=== PATIENT | male | born 1980 | race Caucasian/White ===

== ENCOUNTER 2021-05-21 10:59 | Outpatient (CLI) | payer BC, SELFPAY ==
--- NOTE | 2021-05-21 11:13 | XR_ITS ---
WS: [id number] Exam: XR foot LT min 3V* [id number] Date/Time of Exam: 05/21/2021 11:13 AM Reason For Exam: LEFT FOOT PAIN No fracture or dislocation noted. No sign of obvious stress fracture. No soft tissue foreign bodies a re seen. A 2.3 x 2.7 cm exophytic cortical bone lesion is partially visualized along the medial malle olus. The lesion is somewhat expansile with altered bony architecture in the medial malleolus. No obv ious periosteal elevation is seen. XR/XR foot LT min 3V* [id number] IMPRESSION: 1. No sign of fracture or dislocation of the left foot. No sign of healing stre ss fracture. 2. Incidental finding of 2.3 x 2.7 cm exophytic cortical bone lesion which is s omewhat expansile extending into the region of the medial malleolus. This may r epresent an atypical osteochondroma. A malignant bone lesion such as a perioste al osteosarcoma is much less likely but not completely ruled out. Orthopedic co nsultation and further imaging with MRI with and without contrast is recommende d. Ultimately, biopsy may be necessary for definitive diagnosis. Any prior radi ographs of the left ankle or foot could also be very helpful to determine the c hronicity of this finding.
== END 2021-05-21 11:00 | disposition home or self-care (01) ==
PROVIDERS: PCP Family Medicine; Visit Provider Family Medicine
DX: M79.672 Pain in left foot (principal)
CPT/HCPCS: 73630

== ENCOUNTER 2022-02-09 05:29 | Emergency (ER) | payer BC, SELFPAY ==
[2022-02-09 05:35] VITALS: BMI 30.2
[2022-02-09 05:38] VITALS: BP 123/92; PULSE 62; RESP 16; TEMP 36.7; O2SAT 96
--- NOTE | 2022-02-09 05:44 | CTR_ITS ---
PROCEDURE INFORMATION: Exam: CT Abdomen And Pelvis Without Contrast Exam date and time: 02/09/2022 6:01 AM Age: 41 years old Clinical indication: Abdominal pain; Prior surgery; Surgery type: Hernia repair; Patient HX: C/O right flank pain. TECHNIQUE: Imaging protocol: Computed tomography of the abdomen and pelvis without contrast. Radiation optimization: All CT scans at this facility use at least one of these dose optimization techniques: automated exposure control; mA and/or kV adjustment per patient size (includes targeted exams where dose is matched to clinical indication); or iterative reconstruction. COMPARISON: CT abdomen pelvis w con* [id number] 08/09/2017 5:07 PM RADIATION DOSE METRICS: Total DLP (mGy-cm): 1272.57 FINDINGS: Lungs: The visualized portions of the lung bases are normal. Liver: The non-contrast enhanced liver appears unremarkable. Gallbladder and bile ducts: No calcified stones. No biliary ductal dilatation. Pancreas: The non-contrast enhanced pancreas appears grossly unremarkable. No ductal dilation. Spleen: Some punctate splenic calcified granulomas are seen. The spleen is otherwise unremarkable on noncontrast CT imaging. Adrenal glands: Unremarkable non-contrast CT appearance of the adrenals. No definte masses. Kidneys and ureters: No contour deforming masses seen on the non-contrast CT. Right kidney mid zone 6 x 5 mm calculus is seen. Right kidney lower pole 1-2 mm calculi are seen (2). Left kidney mid zone posterior 3 x 2 mm calculus is seen. There is mild right hydronephrosis and ureterectasis with a right ureterovesicular junction 2 x 2 x 3 mm calculus (series 4, image 200 and series 6, image 97)-at the level of the hip joint. No left hydronephrosis or ureterectasis. No left ureteral calculi. Stomach and bowel: The noncontrast opacified stomach appears unremarkable. The noncontrast opacified loops of small bowel in the abdomen and pelvis appear unremarkable. The noncontrast opacified loops of colon in the abdomen and pelvis show mild constipation. The lack of orally administered contrast material limits bowel assessment. Appendix: No evidence of appendicitis. Intraperitoneal space: No abdominal ascites. No free air. There are numerous benign phleboliths in the pelvis. Vasculature: No abdominal aortic aneurysm. Lymph nodes: No enlarged lymph nodes. Urinary bladder: No bladder wall thickening or debris Reproductive: Unremarkable as visualized. Bones/joints: No acute osseous abnormality seen. [id number] right and mild left hip degenerative changes are seen. There is 1 mm anterolisthesis of L4 on L5, related to severe degenerative facet disease changes. Soft tissues: Small right and medium-sized left inguinal hernias are seen, containing peritoneal fat. Small umbilical hernia is seen, containing peritoneal fat. CT/CT kidney stone [id number] IMPRESSION: 1. Bilateral intrarenal small calculi. Mild right hydronephrosis and ureterectasis with a right ureterovesicular junction 2 x 2 x 3 mm calculus (series 4, image 200 and series 6, image 97)-at the level of the hip joint.
--- NOTE | 2022-02-09 05:45 | W.ED.MALEGU ---
HPI - Male Genitourinary General: Chief complaint: Urogenital-Male Stated complaint: lower right back pain Time Seen by Provider: 02/09/22 05:43 Source: patient Mode of arrival: ambulatory Limitations: no limitations History of Present Illness: 41 yo male presents w hematuria and flank pain that began 2 days ago. Patient has a history of renal stones in the past he is also unable to pass them on his own he is not had any lithotripsy or stents. He denies any fever sweats or chills. Onset (ago): day(s) (2) Duration: constant Location: right flank Radiation: right inguinal region Severity: severe Quality: sharp Relieving factors: none Exacerbating factors: none Associated symptoms: Reports hematuria; Deny discharge, dysuria, fevers/chills, nausea, rash, swelling, urinary incontinence, urinary retention, mass or vomiting Review of Systems Const: Denies: fever(s), chills, body aches, change in appetite, fatigue or malaise ENMT: Denies: throat pain, ear or mastoid pain, nasal discharge or nasal congestion Card: Denies: chest pain, edema, dyspnea on exertion or orthopnea Resp: Denies: dyspnea, productive cough or non-productive cough GI: Denies: abdominal pain, nausea or vomiting : Reports: flank pain and hematuria; Denies: difficulty urinating, dysuria, urinary frequency, urinary urgency or urinary incontinence Skin/Breast: Denies: rash or pruritus [facility] ED PFSH: Medical History (Updated 02/09/22 @ 06:44 by Nestor Dietrich DO) Nephrolithiasis Surgical History (Updated 02/09/22 @ 05:58 by Nestor Dietrich DO) H/O left wrist surgery H/O umbilical hernia repair S/P left rotator cuff repair Social History (Updated 02/09/22 @ 05:59 by Nestro Dietrich DO) Smoking and tobacco status: never smoked Alcohol intake: current Alcohol intake frequency: few times a month Physical Exam Const: GENERAL APPEARANCE: cooperative and comfortable ORIENTATION/CONSCIOUSNESS: Yes awake, Yes oriented to person, Yes oriented to place and Yes oriented to time HENMT: COMMON NORMALS: normocephalic, atraumatic and hearing grossly normal bilaterally HEAD & SCALP: normocephalic and atraumatic Neck/C-Spine: COMMON NORMALS: no JVD Resp: COMMON NORMALS: normal respiratory effort, No retractions, No use of accessory muscles and clear to auscultation bilaterally AUSCULTATION: clear to auscultation bilaterally Cardio: COMMON NORMALS: no JVD, regular rate, regular rhythm and No murmurs present (Cardio) RATE: regular rate RHYTHM: regular rhythm GI: COMMON NORMALS: Soft to palpation and No hepatosplenomegaly present AUSCULTATION: Yes normoactive bowel sounds PALPATION: Yes Soft to palpation, No Tenderness to palpation present (GI), No Guarding due to palpation present (GI) and Yes No hepatosplenomegaly present : BLADDER/KIDNEY EXAM: Yes CVA tenderness Back/Pelvis: GENERAL BACK: Yes CVA tenderness CVA tenderness: right Extremity: COMMON NORMALS: normal to inspection, capillary refill normal, no clubbing, cyanosis or edema, no calf tenderness and no pedal edema Neuro: SENSORIUM/ORIENTATION: Yes oriented to person, Yes oriented to place and Yes oriented to time Skin: COMMON NORMALS: no rashes or lesions noted GENERAL SKIN EXAM: no rashes or lesions noted Course Vital Signs: Vital signs: Vital Signs Temperature 98.0 F 02/09/22 05:38 Pulse Rate 73 02/09/22 07:53 Respiratory Rate 16 02/09/22 07:53 Blood Pressure 145/109 02/09/22 07:53 Pulse Oximetry 96 02/09/22 07:53 MDM - Male Medical Decision Making 3.6 mm renal stone at the right UVJ. It appears its about to pass. Discharge patient home strain urine follow-up with Iverson return if pain uncontrolled Medical Records I reviewed the patient's medical records. Lab Data I reviewed the patient's lab results. : 02/09/22 05:44 02/09/22 05:44 Radiology Impressions Abdomen/Pelvis CT 02/09/22 05:44 IMPRESSION: 1. Bilateral intrarenal small calculi. Mild right hydronephrosis and ureterectasis with a right ureterovesicular junction 2 x 2 x 3 mm calculus (series 4, image 200 and series 6, image 97)-at the level of the hip joint. Laboratory Results WBC 8.3 10^3/uL (4.0-10.0) 02/09/22 05:44 RBC 5.25 10^6/uL (4.1-5.3) 02/09/22 05:44 Hgb 16.0 g/dL (11.7-16.6) 02/09/22 05:44 Hct 45.6 % (42.0-52.0) 02/09/22 05:44 MCV 86.9 fl (80-94) 02/09/22 05:44 MCH 30.5 pg (28.0-34.0) 02/09/22 05:44 MCHC 35.1 g/dL (30.0-36.0) 02/09/22 05:44 RDW 12.1 % (12.1-15.1) 02/09/22 05:44 Plt Count 252 10^3/cmm (130-400) 02/09/22 05:44 MPV 9.3 fL (7.4-10.4) 02/09/22 05:44 Neut % (Auto) 58.8 % 02/09/22 05:44 Lymph % (Auto) 23.0 % 02/09/22 05:44 Tift % (Auto) 9.6 % 02/09/22 05:44 Eos % (Auto) 7.0 % 02/09/22 05:44 Baso % (Auto) 1.1 % 02/09/22 05:44 Neut # (Auto) 4.91 10^3/uL (1.8-7.7) 02/09/22 05:44 Lymph # (Auto) 1.9 10^3/uL (0.8-4.8) 02/09/22 05:44 Tift # (Auto) 0.8 10^3/uL (0.2-0.9) 02/09/22 05:44 Eos # (Auto) 0.6 10^3/uL (0.0-0.8) 02/09/22 05:44 Baso # (Auto) 0.1 10^3/uL (0.0-0.1) 02/09/22 05:44 Nucleated RBC % (auto) 0 % 02/09/22 05:44 Nucleated RBCs # 0.0 /100WBC 02/09/22 05:44 Sodium 140 mmol/L (136-145) 02/09/22 05:44 Potassium 3.9 mmol/L (3.5-5.1) 02/09/22 05:44 Chloride 104 mmol/L (98-107) 02/09/22 05:44 Carbon Dioxide 26 mmol/L (22-29) 02/09/22 05:44 Anion Gap 13.9 (5-19) 02/09/22 05:44 BUN 16 mg/dL (6-20) 02/09/22 05:44 Creatinine 0.8 mg/dL (0.7-1.2) 02/09/22 05:44 GFR Calculation 107.1 mL/min (90-130) 02/09/22 05:44 Glucose 103 mg/dL (65-115) 02/09/22 05:44 Calculated Osmolality 291 mOsm/kg (285-295) 02/09/22 05:44 Calcium 9.1 mg/dL (8.5-10.5) 02/09/22 05:44 Urine Color Brown (Yellow) 02/09/22 06:54 Urine Appearance Cloudy (CLEAR) 02/09/22 06:54 Urine pH 5 (5-7) 02/09/22 06:54 Ur Specific Holt 1.030 (1.005-1.030) 02/09/22 06:54 Urine Protein 2+ (Negative) H 02/09/22 06:54 Urine Glucose (UA) Norm (Normal) 02/09/22 06:54 Urine Ketones Negative (Negative) 02/09/22 06:54 Urine Blood 3+ (Negative) H 02/09/22 06:54 Urine Nitrate Negative (Negative) 02/09/22 06:54 Urine Bilirubin 1+ (Negative) H 02/09/22 06:54 Urine Urobilinogen 1 mg/dL (Negative) H 02/09/22 06:54 Ur Leukocyte Esterase Trace (Negative) H 02/09/22 06:54 Urine RBC Too numerous to cnt /hpf (0-2) H 02/09/22 06:54 Urine WBC 0-4 /hpf (0-5) H 02/09/22 06:54 Ur Squamous Epith Cells 0-4 /hpf (0-5) H 02/09/22 06:54 Amorphous Sediment Not Reportable 02/09/22 06:54 Urine Bacteria Trace /hpf (NONE) 02/09/22 06:54 Discharge Plan Discharge Patient Disposition: Home Clinical Impression: Nephrolithiasis Condition: Stable Prescriptions: New hydrocodone-acetaminophen 5-325 mg tablet 1 tab PO Q6H PRN (Reason: pain) Qty: 20 0RF ondansetron HCl 4 mg tablet 4 mg PO Q6H PRN (Reason: nausea and vomiting) Qty: 20 0RF tamsulosin 0.4 mg capsule 0.4 mg PO DAILY Qty: 14 0RF Discharge Orders: Discharge ED (Routine); Ordered 02/09/22 Ordered By: Nestor Dietrich Referrals: Fabrizio Hu DO [Primary Care Provider] - Discharge Diet: Usual diet Discharge Activity: Resume usual activity Patient Instructions: Opioid Safety Activity Restrictions/Additional Instructions: Strain urine to retrieve stone. online community manager will make arrangements for you to follow-up with Dr. Iverson. Coding Level of Care Code ED Melt Helper for Awilda Fwd Exam Comprehensive
[2022-02-09 05:51] LABS: Basophils # 0.1 10^3/uL (0.0-0.1); Basophils % 1.1 %; Eosinophils # 0.6 10^3/uL (0.0-0.8); Hematocrit 45.6 % (42.0-52.0); Lymphocytes # 1.9 10^3/uL (0.8-4.8); Mean Corpuscular HGB Conc 35.1 g/dL (30.0-36.0); Mean Corpuscular Hemoglobin 30.5 pg (28.0-34.0); Mean Corpuscular Volume 86.9 fl (80-94); Mean Platelet Volume 9.3 fL (7.4-10.4); Monocytes # 0.8 10^3/uL (0.2-0.9); Monocytes % 9.6 %; Neutrophils # 4.91 10^3/uL (1.8-7.7); Neutrophils % 58.8 %; Nucleated Red Blood Cells % 0 %; Platelet Count 252 10^3/cmm (130-400); Red Blood Count 5.25 10^6/uL (4.1-5.3); Red Cell Distribution Width 12.1 % (12.1-15.1); White Blood Count 8.3 10^3/uL (4.0-10.0)
[2022-02-09 05:52] VITALS: RESP 20
[2022-02-09] MEDS: morphine 4 mg/mL SDV 1 mL 8 MG IVP (05:52)
[2022-02-09] MEDS: ondansetron 2 mg/ML SDV 2 mL 4 MG IVP (05:52)
[2022-02-09 06:13] LABS: Blood Urea Nitrogen 16 mg/dL (6-20); Calcium 9.1 mg/dL (8.5-10.5); Carbon Dioxide 26 mmol/L (22-29); Chloride 104 mmol/L (98-107); Glomerular Filtration Rate 107.1 mL/min (90-130); Glucose 103 mg/dL (65-115); Osmolality Calculated 291 mOsm/kg (285-295); Sodium 140 mmol/L (136-145)
[2022-02-09 06:38] LABS: Anion Gap 13.9 (5-19); Potassium 3.9 mmol/L (3.5-5.1)
[2022-02-09 06:39] VITALS: BP 115/92; PULSE 60; RESP 14; O2SAT 97
[2022-02-09 06:47] VITALS: RESP 14
[2022-02-09] MEDS: morphine 4 mg/mL SDV 1 mL IVP (06:47)
[2022-02-09] MEDS: ketorolac 30 mg/mL INJ IVP (06:48)
[2022-02-09 07:19] LABS: Glucose Urine UA Norm (Normal); Protein Urine 2+ (Negative); Urine Appearance Cloudy (CLEAR); Urine Color Brown (Yellow); pH Urine 5 (5-7)
[2022-02-09 07:20] LABS: Add Urine Microscopic? YES; Bilirubin Urine 1+ (Negative); Blood Urine 3+ (Negative); Ketones Urine Negative (Negative); Leukocyte Esterase Urine Trace (Negative); Nitrate Urine Negative (Negative); RBC Urine TOO NUMEROUS TO CNT /hpf (0-2); Urobilinogen Urine 1 mg/dL (Negative)
[2022-02-09 07:21] LABS: Add Urine Culture? Yes; Bacteria Urine TRACE /hpf; Squamous Epithelial Cell Urine 0-4 /hpf (0-5); WBC Urine 0-4 /hpf (0-5)
[2022-02-09 07:53] VITALS: BP 145/109; PULSE 73; RESP 16; O2SAT 96
--- NOTE | 2022-02-09 15:18 | DCPLANNER ---
Addendum entered by Soraida Lou 03/19/22 12:10: Patient had a follow up appointment scheduled for 03.17.22 with urology - patient did not attend appointment. Addendum entered by Soraida Lou 02/16/22 15:50: Patient has a follow up appointment scheduled for Thursday March 17, 2022 at 10:[address] Iverson. Clinic will call patient with appointment information. Original Note: marketing communication manager had message to schedule a follow up appointment for patient with urology. marketing communication manager sent patients information to the front office staff at urology. Patients information will be printed and reviewed. Clinic will call patient with appointment information.
== END 2022-02-09 07:54 | disposition home or self-care (01) ==
PROVIDERS: Emergency Provider Family Medicine; PCP Family Medicine
DX: N20.0 Calculus of kidney (principal); Z87.442 Personal history of urinary calculi
CPT/HCPCS: 74176; 80048; 81001; 85025; 87086; 96374; 96375; 96376; 99284; J1885; J2270; J2405

== ENCOUNTER → 2023-06-14 12:59 | Outpatient (BNVA) | payer BC, SELFPAY | PROVIDERS: PCP Family Medicine; Visit Provider Family Medicine | DX: Z13.6 Encounter for screening for cardiovascular disorders (principal); R03.0 Elevated blood-pressure reading, without diagnosis of hypertension; G47.33 Obstructive sleep apnea (adult) (pediatric); G47.00 Insomnia, unspecified; R07.89 Other chest pain | CPT/HCPCS: 80053; 80061; 83036; 85025 ==

== ENCOUNTER 2023-09-30 11:09 | Outpatient (CLI) | payer BC, SELFPAY ==
--- NOTE | 2023-09-30 11:16 | XR_ITS ---
WS: [id number] Chest 2 views, 09/30/2023 Clinical Data: wheezing Comparison: None. Findings: No nodules, masses or effusions are seen. The heart is normal. The pulmonary vascularity is not increased. No pneumonia or pneumothorax is seen. Impression: Negative chest.
== END 2023-09-30 11:10 | disposition home or self-care (01) ==
LOC: RAD 11:10
PROVIDERS: PCP Family Medicine; Visit Provider Emergency Medicine
DX: J45.909 Unspecified asthma, uncomplicated (principal)
CPT/HCPCS: 71046

== ENCOUNTER 2024-02-21 14:48 | Outpatient (CLI) | payer BC, SELFPAY | END 2024-02-21 14:49 | disposition home or self-care (01) | LOC: SLEEP 14:51 | PROVIDERS: PCP Family Medicine; Visit Provider Family Medicine | DX: G47.33 Obstructive sleep apnea (adult) (pediatric) (principal); G47.00 Insomnia, unspecified | CPT/HCPCS: G0399 ==